=== PATIENT | female | born 1975 | race Caucasian/White ===

== ENCOUNTER 2016-08-09 16:14 | Emergency (ER) | payer BC ==
[~2016-08-09] VITALS: Ht 160 cm; Wt 71.2 kg
--- NOTE | 2016-08-09 16:40 | NUR ---
PT BIB MOTHER C/O FEELING WEAK, CHILLS, SWEATY, AND NAUSEOUS X 3 DAYS. DENIES VOMITING OR DIARRHEA. DENIES URINARY SYMPTOMS. RESP EVEN UNALBORED. SKIN WARM NONDIAPHORETIC ON PRESENTATION. AMBULATORY WITH STEADY GAIT. NAD NOTED. IN ER BED 12.
[2016-08-09 17:15] LABS: BASOPHILS # (AUTO) 0.1 /CMM (0.0-0.2); BASOPHILS % (AUTO) 0.9 % (0.0-2.0); EOSINOPHILS # (AUTO) 0.2 /CMM (0.0-0.7); HEMATOCRIT 51 % (33-45); HEMOGLOBIN 16.9 g/dL (11.5-14.8); LYMPHOCYTES # (AUTO) 2.1 /CMM (0.8-4.8); LYMPHOCYTES % (AUTO) 20.1 % (20.0-44.0); MEAN CORPUSCULAR HEMOGLOBIN 31 PG (26.0-33.0); MEAN CORPUSCULAR HGB CONC 34 g/dl (31.0-36.0); MEAN CORPUSCULAR VOLUME 93 fL (82-100); MONOCYTES # (AUTO) 0.6 /CMM (0.1-1.30); MONOCYTES % (AUTO) 5.6 % (2.0-12.0); NEUTROPHILS # (AUTO) 7.2 /CMM (1.8-8.9); NEUTROPHILS % (AUTO) 71.4 % (43.0-81.0); PLATELET COUNT (AUTO) 319 /CMM (150-450); RED BLOOD CELL COUNT(AUTO) 5.42 MIL/uL (4.0-5.2); WHITE BLOOD COUNT (AUTO) 10.2 K/uL (4.3-11.0)
[2016-08-09 17:22] LABS: CALCIUM, SERUM 9.3 mg/dL (8.5-10.1); POTASSIUM 3.9 mmol/L (3.5-5.1)
[2016-08-09] MEDS ORDERED: IV SET PRIMARY 1 EA INFUS.SET MC ONE ×2 (17:25→18:13)
[2016-08-09] MEDS ORDERED: ONDANSETRON HCL/PF 4 MG/2 ML VIAL ONE (17:25)
[2016-08-09] MEDS ORDERED: IV NS 0.9% 1,000 ML ONE ×2 (17:25→18:13)
[2016-08-09] MEDS ORDERED: FAMOTIDINE/PF INJ 20 MG/2 ML VIAL IV ONE ×2 (17:26→17:30)
[2016-08-09 17:28] LABS: ALBUMIN 4.1 g/dL (3.4-5.0); BILIRUBIN,DIRECT 0.2 mg/dL (0.0-0.2); BILIRUBIN,TOTAL 2.2 mg/dL (0.2-1.0); TOTAL PROTEIN, SERUM 8.5 g/dL (6.4-8.2)
[2016-08-09] MEDS ORDERED: IV NS 0.9% 1,000 ML BAG IV ONE ×2 (17:30→18:30)
[2016-08-09] MEDS ORDERED: ONDANSETRON HCL/PF 4 MG/2 ML VIAL IV ONE (17:30)
[2016-08-09 18:03] LABS: APPEARANCE,URINE Clear (CLEAR); BILIRUBIN,URINE Negative (NEGATIVE); BLOOD, URINE Negative Ery/uL (NEGATIVE); COLOR,URINE Yellow (YELLOW); KETONES,URINE 80 (NEGATIVE); LEUKOCYTE ESTERASE ,URINE Negative (NEGATIVE); NITRITE, URINE Negative (NEGATIVE); PH,URINE 5.5 (5.0-8.0); PROTEIN,URINE Negative (NEGATIVE); UGLUCOSE Negative (NEGATIVE); UROBILINOGEN,URINE 0.2 EU/dL (0.2)
--- NOTE | 2016-08-09 18:33 | NUR ---
IVF ONGOING. TO BE DISCHARGED WHEN IVF IS COMPLETED. RESTING QUIETLY. ALL NEEDS ATTENDED TO.
[2016-08-09 18:47] LABS: BACTERIA,URINE Many /HPF (None Seen); RBC,URINE 0-2 /HPF (0-2); SQUAMOUS EPITHELIAL CELL,UR Few /HPF (None Seen)
--- NOTE | 2016-08-09 18:48 | NUR ---
IV removed. Catheter intact and site benign. Pressure and 4x4 applied to site. No bleeding noted. Patient discharged to home in stable condition. Written and verbal after care instructions given. Patient verbalizes understanding of instruction.
[2016-08-09 19:19] VITALS: BP 139/78
== END 2016-08-09 19:20 | disposition home or self-care (01) ==
LOC: ER 16:19
DX: R11.2 Nausea with vomiting, unspecified (principal); E86.0 Dehydration
CPT/HCPCS: 36415; 80048; 80076; 81001; 82550; 83690; 84703; 85025; 87086; 96361; 96374; 96375; 99285; A4606; J2405; J3490; J7030 ×2; Z7610; 81000-TC

== ENCOUNTER 2018-02-28 00:56 | Emergency (ER) | payer BC ==
[~2018-02-28] VITALS: Ht 160 cm; Wt 70.3 kg
--- NOTE | 2018-02-28 01:17 | NUR ---
PT PRESENTED TO THE ER WITH A C/O NECK PAIN AND HEADACHE. PT AMBULATED TO ER 2 WITH A SLOW STEADY GAIT. PT'S MOTHER IS AT THE BEDSIDE.
[2018-02-28] MEDS ORDERED: IV NS 0.9% 1,000 ML BAG IV ONE (01:30)
[2018-02-28] MEDS ORDERED: METOCLOPRAMIDE HCL 10 MG/2 ML VIAL IV ONE (01:30)
[2018-02-28] MEDS ORDERED: SUMATRIPTAN SUCCINATE 6 MG/0.5 ML VIAL SQ ONE ×2 (01:30→01:40)
[2018-02-28] MEDS ORDERED: METOCLOPRAMIDE HCL 10 MG/2 ML VIAL ONE (01:40)
[2018-02-28 02:47] VITALS: BP 138/83
== END 2018-02-28 02:47 | disposition home or self-care (01) ==
LOC: ER 00:59
DX: R51 Headache (principal); Z60.2 Problems related to living alone
CPT/HCPCS: 96372; 96374; 99283; A4606; J2765; J3030; J7030; Z7610